=== PATIENT | male | born 1960 ===

== ENCOUNTER 2017-11-12 07:11 | Outpatient (CLI) | payer OTHER ==
[2017-11-18] MEDS ORDERED: VALSARTAN-HCTZ1 EAC1 PO (12:57)
[2017-11-18] MEDS ORDERED: TAMS0.4C PO (12:57)
[2017-11-18] MEDS ORDERED: PROSCAR5 MG PO (12:58)
== END 2017-11-12 07:25 | disposition home or self-care (01) ==
LOC: EDBD 07:11 → LAB 07:11
DX: N30.00 Acute cystitis without hematuria (principal); R82.79 Other abnormal findings on microbiological examination of urine

== ENCOUNTER 2017-11-19 11:08 | Inpatient (IN) | payer OTHER ==
[~2017-11-19] VITALS: Ht 172.7 cm; Wt 73.5 kg
[~2017-11-19 11:08] MED LIST: PROSCAR5 MG PO; TAMS0.4C PO; VALSARTAN-HCTZ1 EAC1 PO
== END 2017-11-22 12:44 | disposition home or self-care (01) | DRG 714 ==
LOC: SURH 11-20 03:45 → O/R 11-20 08:10 → SURH 11-20 08:10 → EDBD 11-20 08:10 → ICU 11-20 12:24 → SURH 11-20 13:10
PROVIDERS: Urology
PROC: 0VT08ZZ Resection of Prostate, Via Natural or Artificial Opening Endoscopic (ICD-10-PCS; principal; 2017-11-20 03:45)
DX: N40.1 Benign prostatic hyperplasia with lower urinary tract symptoms (principal); R33.8 Other retention of urine